=== PATIENT | female | born 1990 | race Caucasian/White ===

== ENCOUNTER 2016-09-19 21:16 | Emergency (ER) | payer BC ==
[~2016-09-19] VITALS: Ht 160 cm; Wt 55.8 kg
[2016-09-19 21:18] VITALS: TEMP 36.9; Ht 160 cm; Wt 55.8 kg
[2016-09-19] MEDS ORDERED: KETOROLAC TROMETHAMINE 60 MG/2 ML VIAL IM STA (21:34)
[2016-09-19] MEDS ORDERED: MoRPHine SULFATE 10 MG/ML CARP/VIAL IM STA (21:34)
[2016-09-19] MEDS ORDERED: ONDANSETRON 4MG OD TAB PO STA (21:34)
[2016-09-19] MEDS ORDERED: CEPH500C PO (22:40)
[2016-09-19] MEDS ORDERED: OXYC1TAB3 PO (22:40)
[2016-09-19] MEDS ORDERED: OXYCODONE IR HOME PACK PO ONE (22:45)
[2016-09-19] MEDS ORDERED: CEPHALEXIN 500MG HOME PACK 1 EA BTL PO ONE (22:45)
[2016-09-19 23:07] VITALS: BP 103/49; PULSE 68; O2SAT 99
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
== END 2016-09-19 23:10 | disposition home or self-care (01) ==
LOC: C.EDB 21:17
DX: T25.022A Burn of unspecified degree of left foot, initial encounter (principal); X10.1XXA Contact with hot food, initial encounter; K21.9 Gastro-esophageal reflux disease without esophagitis; J45.909 Unspecified asthma, uncomplicated; F17.200 Nicotine dependence, unspecified, uncomplicated; Z98.890 Other specified postprocedural states

== ENCOUNTER 2016-09-23 19:44 | Emergency (ER) | payer BC ==
[~2016-09-23] VITALS: Ht 160 cm; Wt 54.4 kg
[~2016-09-23 19:44] MED LIST: CEPH500C PO; OXYC1TAB3 PO
[2016-09-23 19:48] VITALS: Ht 160 cm; Wt 54.4 kg
[2016-09-23] MEDS ORDERED: KETOROLAC TROMETHAMINE 60 MG/2 ML VIAL IM STA (19:55)
[2016-09-23] MEDS ORDERED: CEPH500C2 PO (20:05)
[2016-09-23] MEDS ORDERED: MoRPHine SULFATE 10 MG/ML CARP/VIAL IM STA (21:01)
--- NOTE | 2016-09-23 21:52 | EMERGENCY ROOM VISIT NOTE ---
ED Visit Note First contact with patient: 19:59 The patient was seen and examined with Sarah Chapman PA-C. I agree with the history, physical and findings. Please see the note for disposition and details.
[2016-09-23 22:03] VITALS: TEMP 36.7
[2016-09-24 00:16] VITALS: BP 116/79; PULSE 89; O2SAT 100
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
[2016-09-24] MEDS ORDERED: OXYCODONE HCL IR 5 MG TAB (IMMEDIATE RELEASE) PO STA (00:25)
== END 2016-09-24 00:18 | disposition short-term general hospital (02) ==
LOC: C.EDB 19:45 → C.EDA 09-24 00:18
DX: T25.122A Burn of first degree of left foot, initial encounter (principal); X12.XXXA Contact with other hot fluids, initial encounter; K21.9 Gastro-esophageal reflux disease without esophagitis; J45.909 Unspecified asthma, uncomplicated; F17.200 Nicotine dependence, unspecified, uncomplicated; Z98.890 Other specified postprocedural states

== ENCOUNTER 2016-09-29 19:53 | Emergency (ER) | payer BC ==
[~2016-09-29] VITALS: Ht 160 cm; Wt 50.9 kg
[~2016-09-29 19:53] MED LIST changes: -CEPH500C PO; +CEPH500C2 PO; -OXYC1TAB3 PO
[2016-09-29 20:00] VITALS: TEMP 36.6; Ht 160 cm; Wt 50.9 kg
[2016-09-29] MEDS ORDERED: OXYC1TAB3 PO ×2 (20:05→20:53)
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
[2016-09-29] MEDS ORDERED: OXYCODONE IR HOME PACK PO ONE (21:15)
[2016-09-29 21:17] VITALS: BP 130/81; PULSE 105; O2SAT 99
[2016-09-29] MEDS ORDERED: IBUP-1050 PO (22:05)
[2016-09-29] MEDS ORDERED: ACET-1256 PO (22:05)
== END 2016-09-29 21:20 | disposition home or self-care (01) ==
LOC: C.EDB 19:54 → C.EDD 21:20
DX: T25.022D Burn of unspecified degree of left foot, subsequent encounter (principal); X12.XXXD Contact with other hot fluids, subsequent encounter; F17.200 Nicotine dependence, unspecified, uncomplicated; J45.909 Unspecified asthma, uncomplicated

== ENCOUNTER 2018-08-19 20:20 | Inpatient (IN) ==
[2018-08-19] MEDS ORDERED: BISACODYL 10 MG SUPP PR PRN (20:41)
[2018-08-19] MEDS ORDERED: HYDROCORTISONE ACETATE 25 MG SUPP PR PRN (20:41)
[2018-08-19] MEDS ORDERED: BENZOCAINE 20% AER SPR 82.5 GM CAN EXT PRN (20:41)
[2018-08-19] MEDS ORDERED: SUPERCREAM 0.870% 15 GM JAR EXT PRN (20:41)
[2018-08-19] MEDS ORDERED: OXYTOCIN 30 UNITS/500 ML BAG IV PRN ×2 (20:41)
[2018-08-19] MEDS ORDERED: ACETAMINOPHEN 325 MG TAB PO PRN (20:41)
[2018-08-19] MEDS ORDERED: DIPHTHERIA/TETANUS/PERTUSSIS 0.5 ML SYR/VIAL IM ONE (20:41)
--- NOTE | 2018-08-19 20:53 | History & Physical Report ---
Date of Service August 19, 2018 Assessment & Plan (1) No care in current : - albs - UDS - EtOH level - Social work consult (2) premature rupture of membranes (PPROM) delivered, current hospitalization: History of Present Illness Primary Care Provider: NO PCP Patient presented in active labor at 10/100/+2. Patient has no care. She reports LMP in mid November. Reports prior without complication. Patient denied any significant PMH/PSH. Denied any recent drug us. Allergies Allergy/AdvReac Type Severity Reaction Status Date / Time No Known Allergies Allergy Verified 08/19/18 20:43 Home Medications Home Medications Medication Instructions Recorded Confirmed Type PNV cmb#[id number]-ferrous fumarate-FA 1 tab PO DAILY 08/19/18 08/19/18 History [] Patient History Medical History [place] teeth extracted 11th grade Surgical History History of tonsillectomy 8th grade Family History Father Hypertension Mother Pulmonary hypertension Social History Preferred Language: Salvadorean Communication Ability: Effective Cellulose Insulation Helper Required: No Beliefs That Will Affect Care: None marital status: Single Current Living Situation: Significant Other Current Living Situation Comment: trailer - pt states she moved in with father of baby today Other Information That Helps Us Care for You: No Feels Safe at Home: Yes Safety Concerns: Feels Safe At This Time Smoking Status: Current every day smoker Hx Alcohol Use: No Hx Substance Use: No Physical Exam Vital Signs (Past 24 Hours): Last Vital Signs Pulse 68 08/19/18 20:50 BP 124/79 08/19/18 20:50 Genitourinary: OB Exam Abdomen: + breech Manual OB Exam: + cervical dilation 10 cm, + cervical effacement 100%, + station + 2 and + amniotic fluid clear OB Exam Monitor Tracing: + external FHT monitor used
[2018-08-19 21:34] LABS: Hematocrit (blood only) 32.6 % (37-47); Mean Corpuscular Volume 86.2 fL (80-100); Mean Platelet Volume 10.1 fL (7.4-10.4); Platelet Count 195 K/uL (130-400); RDW Standard Deviation 44.2 fL (36.4-46.3); Red Blood Count 3.78 M/uL (4.2-5.4); White Blood Count 16.28 K/uL (4.8-10.8)
--- NOTE | 2018-08-19 21:50 | Delivery Summary ---
DATE OF OPERATION: 08/19/2018 PROCEDURE: Breech vaginal delivery. SURGEON: Ron Fay MD PREOPERATIVE DIAGNOSES: 1. Single intrauterine at approximately 35 weeks gestational age based on last menstrual period. 2. No care. 3. Spontaneous labor. 4. Suspected substance abuse. 5. Breech presentation. POSTOPERATIVE DIAGNOSES: 1. Single intrauterine at approximately 35 weeks gestational age based on last menstrual period. 2. No care. 3. Spontaneous labor. 4. Suspected substance abuse. 5. Breech presentation. 6. Delivered. ESTIMATED BLOOD LOSS: 300 mL DRAINS: None. FLUIDS: None. URINE OUTPUT: Not measured. COMPLICATIONS: None. INDICATIONS: Ms. Szymanski is a 28-year-old G3, P1-0-1-1 with no care. Had an LMP of 11/2017. The patient presented to labor and delivery via EMT in active labor. Of note, the patient had no care throughout this . On initial cervical exam, the patient was found to be 10 cm dilated, 100% effaced, positive 2-3 station. There is noted to be fetus in complete breech position. DESCRIPTION OF PROCEDURE: The patient was in an uncontrolled state. Attention of the patient was obtained and explained that the baby was in breech and that this did and pose increased risk and that it was vital that she maintain control and listen for instructions. The patient began to push and pushed over 3 contractions to deliver the buttocks. Internal rotation of legs was then performed to deliver the bilateral legs. The was then wrapped in a towel. Mother continued to push to the level of the axilla. Internal rotation of both arms was performed to deliver bilateral shoulders. The head of the then delivered over the next push and the was delivered to the maternal abdomen. Cord was double clamped and cut. was taken to the nursery staff for evaluation. Cord blood was then obtained and attention was returned to delivery of the placenta, which was delivered intact with 3-vessel cord, gentle cord traction. Attention was then turned to the perineum, cervix, and vagina for inspection. There was noted to be no lacerations. Sponge and instrument counts are correct at the completion of the case. Both mother and were stable immediately after postdelivery. I attest to the content of the Intraoperative Record and any orders documented therein. Any exceptions are noted below. MTDD
[2018-08-19 22:04] LABS: Mean Corpuscular Hgb Conc 33.7 g/dL (32-36)
[2018-08-19 22:25] LABS: Rubella IgG Antibody Immune (Immune)
[2018-08-19 22:54] LABS: Hepatitis C IgG 13Yrs+Old_Rflx Neg (Neg)
[2018-08-19 23:50] LABS: Appearance Urine Clear (Clear); Bilirubin Urine Negative (Negative); Blood Urine 3+ (Negative); Cast Urine Automated 0 /lpf (0-5); Color Urine Yellow; Epithelial Cell Urine Auto >30 /lpf (0-5); Glucose Urine UA Negative (Negative); Ketones Urine Negative (Negative); Leukocyte Esterase Urine 1+ (Negative); Nitrite Urine Negative (Negative); Specific Gravity Urine 1.018 (1.000-1.030); Urobilinogen Urine Negative (Negative); pH Urine 7.5 (4.5-7.5)
[2018-08-20 00:08] LABS: Amphetamines+Metham, Urine Pos (Neg); Barbiturates, Urine Neg (Neg); Benzodiazepine, Urine Neg (Neg); Cocaine, Urine Neg (Neg); MDMA (Ecstacy), Urine Neg (Neg); Methadone, Urine Neg (Neg); Opiate, Urine Pos (Neg); Phencyclidine, Urine Neg (Neg)
[2018-08-20] MEDS: IBUPROFEN 600 MG TAB PO PRN ×4 (00:15→15:55)
[2018-08-20 00:20] LABS: Protein Urine 1+ (Negative)
[2018-08-20 00:40] LABS: RBC Urine Automated >30 /hpf (0-4); WBC Urine Automated >30 /hpf (0-5)
[2018-08-20 00:42] LABS: Bacteria Urine Automated 1+ (Negative)
--- NOTE | 2018-08-20 05:53 | Obstetrical Progress Note ---
Date of Service August 20, 2018 Assessment & Plan (1) No care in current : - wnl - UDS: +Amphetamine and opiates - EtOH level wnl - Social work consult (2) (spontaneous vaginal delivery): Continue routine care Subjective Ambulation: ambulating normally Voiding: no voiding problems Diet Tolerance:: clear liquids Lochia:: Moderate Physical Exam Vital Signs (Past 24 Hours) Last Vital Signs Temp 36.5 C 08/20/18 03:25 Pulse 80 08/20/18 03:25 Resp 16 08/20/18 03:25 BP 111/70 08/20/18 03:25 Genitourinary OB Exam Abdomen: + fundal height Fundus: + firm and + relation to umbilicus (Below); not tender and not boggy
[2018-08-20 07:05] LABS: Hemoglobin 9.9 g/dL (12.0-16.0); Mean Corpuscular Hgb Conc 34.1 g/dL (32-36); Mean Corpuscular Volume 85.8 fL (80-100); Platelet Count 226 K/uL (130-400); RDW Coefficient of Variation 13.9 % (11.5-14.5); RDW Standard Deviation 43.1 fL (36.4-46.3); Red Blood Count 3.38 M/uL (4.2-5.4); White Blood Count 22.24 K/uL (4.8-10.8)
[2018-08-20] MEDS: DOCUSATE SODIUM 100 MG CAP PO SCH ×2 (08:49→20:37)
[2018-08-20] MEDS: PRENATAL VITAMIN 1 TAB PO SCH (08:49)
[2018-08-20] MEDS ORDERED: BISACODYL 5 MG TABEC PO SCH (20:00)
[2018-08-21] MEDS: IBUPROFEN 600 MG TAB PO PRN (03:17)
[2018-08-21 06:39] LABS: Hematocrit (blood only) 28.3 % (37-47); Hemoglobin 9.4 g/dL (12.0-16.0)
--- NOTE | 2018-08-21 07:17 | Obstetrical Progress Note ---
Date of Service August 21, 2018 Assessment & Plan (1) Status post vaginal delivery: Patient is a 28 year old PPD 2 s/p -Vital signs WNL bp 114/74 T36.5, -Hemoglobin is 9.4 on ppd1 down from 11.0 on admission. no si/sx of anemia. -Pt is doing clinically well -Continue to encourage ambulation as tolerated, Monitor and control pain with motrin prn, Continue diet as tolerated. -Continue to support and encourage breast feeding -Counseled patient on discharge instructions including Vaginal bleeding, fevers, followup, lifting restrictions, breast feeding, vitamins, and nothing in the vagina for 6 weeks. Pt was agreeable -Plan for d/c today Supervising Physician Co-Signing Physician Notes Patient seen and evaluated and agree with the above assessment and plan Subjective PT doing well this morning laying in bed with her significant other. No acute events overnight.Patient is tolerating her diet, ambulating, passing gas and voiding, still no bm. Reports moderate lochia. Denies H/A, chest pain, palpitations and uti syx. No concerns at this time pain is well controlled Physical Exam Vital Signs (Past 24 Hours): Last Vital Signs Temp 36.5 C 08/20/18 23:30 Pulse 86 08/21/18 03:35 Resp 18 08/21/18 03:35 BP 114/74 08/21/18 03:35 Constitutional: WD/WN, vitals as above Cardiovascular: Extremities: no calf tenderness and no pedal edema Gastrointestinal (Abdomen): normal bowel sounds, soft, nontender, no hepatosplenomegaly (Uterus firm below umbilicus) Results & Data Laboratory Results 08/21/18 Range/Units 06:26 Hgb 9.4 L (12.0-16.0) g/dL Hct 28.3 L (37-47) % Medications Administered Current Inpatient Medications Acetaminophen (Tylenol) 650 mg PO Q6H PRN PRN Reason: Pain/MAYER/Fever Stop: 09/18/18 20:40 Benzocaine (Dermoplast Pain Relieving [place]) 1 appln EXT PRN PRN PRN Reason: Perineal Discomfort Stop: 09/18/18 20:40 Bisacodyl (Dulcolax) 10 mg PA DAILY PRN PRN Reason: No BM on 2nd post- day Stop: 09/18/18 20:40 Cocaine HCl (Supercream 0.870%) 1 gm EXT BID PRN PRN Reason: Hemorrhoidal Inflammation Stop: 09/02/18 20:40 Docusate Sodium (Colace) 100 mg PO BID [place] Stop: 09/18/18 20:59 Last Admin: 08/20/18 20:37 Dose: Not Given Documented by: Hydrocortisone (Anusol Hc) 25 mg PA BID PRN PRN Reason: Hemorrhoidal Inflammation Stop: 09/18/18 20:40 Oxytocin (Pitocin) 30 units in 500 mls @ 333.333 mls/hr IV .Q1H30M PRN; Protocol PRN Reason: BLEEDING CONTROL Stop: 09/18/18 20:40 Last Titration: 08/19/18 21:10 Dose: Infused Documented by: Oxytocin (Pitocin) 30 units in 500 mls @ 333.333 mls/hr IV .Q1H30M PRN; Protocol PRN Reason: Bleeding Control Stop: 09/18/18 20:40 Ibuprofen (Motrin) 600 mg PO Q4H PRN PRN Reason: Pain/MAYER/Cramping/Fever Stop: 09/18/18 20:40 Last Admin: 08/21/18 03:17 Dose: 600 mg Documented by: Prenat Multivit/[place]/Iron/Folic Ac ( Vitamin) 1 tab PO QAM [facility] Stop: 09/19/18 08:59 Last Admin: 08/20/18 08:49 Dose: 1 tab Documented by: Resident Activity Tracking Resident Involvement: Resident Care Provided Care Provided: Adult Hospital Medicine
[2018-08-21] MEDS: DOCUSATE SODIUM 100 MG CAP PO SCH (08:16)
[2018-08-21] MEDS: PRENATAL VITAMIN 1 TAB PO SCH (08:16)
[2018-08-22 13:21] LABS: Chlamydia Trach RNA DETECTED (NOT DETECTED); GC (Neis gonorrhoeae) RNA DETECTED (NOT DETECTED)
[2018-08-23 16:11] LABS: Amphetamine Urine, Confirm NEGATIVE NG/ML (CUTOF=250); Hydrocodone Urine NEGATIVE NG/ML (CUTOFF=50); Hydromor Urine NEGATIVE NG/ML (CUTOFF=50); Morphine Urine 7840 NG/ML (CUTOFF=50); Norhydrocodone Conf Ur NEGATIVE NG/ML (CUTOFF=50); Noroxycodone Urine NEGATIVE NG/ML (CUTOFF=50); Oxycodone Urine NEGATIVE NG/ML (CUTOFF=50)
== END 2018-08-21 15:50 | disposition home or self-care (01) | DRG 806 ==
LOC: OPB 20:35 → 4S1 20:39 → 4S2 23:05